=== PATIENT | male | born 1975 | race Caucasian/White ===

== ENCOUNTER → 2023-10-20 | Outpatient (CLI) | payer BC ==
[2023-10-20 08:46] VITALS: BP 122/81; PULSE 78; RESP 16
--- NOTE | 2023-10-20 14:20 | P.PAINPG ---
PQRS Measure Charge Sheet Comment: HISTORY OF PRESENT ILLNESS: A 47 yr old male as a referral from [facility] presents today w severe and chronic LBP secondary to DDD, spondylosis and facet arthropathy without myelopathy for evaluation. Pt states pain level is provoked at 8 /10 in intensity, constant, localized in the lower lumbar spine, predominantly axial, throbbing in character w occasional shooting pain towards the R hip. Pain is provoked by lifting or over activity. 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 Oswestry axial pain score at 23. PMH: OA, Hyperlipidemia PSH: Appendectomy (2020), Hernia Repairs SH: Former tobacco user, Occasional ETOH use, No illicit drug use FH: Non contributory All: See list Meds: See list REVIEW OF ORGAN SYSTEMS: CONSTITUTIONAL: No fevers or chills. No recent weight loss. NEUROLOGICAL: + numbness and tingling along the distal extremities. No seizure disorders or headaches. MUSCULOSKELETAL: + pain PSYCHIATRIC: Denies current depression or suicidal thoughts. Physical Examinations : Constitutional : Cooperative , not in acute distress . Neurologic : Cranial nerve II to XII intact. No focal neurological deficits. Psychiatric : alert & oriented x 3. Matching mood & appropriate affect. Judgment & insight intact. Musculoskeletal : Cervical Spine Motor strength in the deltoid and biceps: Normal right side. Normal Left side Motor strength biceps and the wrist extensors: Normal right side . Normal left side Motor strength in the triceps muscle: Normal right side. Normal left side Deep tendon reflexes: Normal at the biceps. Normal at Brachioradialis. Normal at triceps Vertebral body tenderness to deep palpation over Cervical facet loading test: positive bilaterally Spurling test: positive bilaterally Neck distraction test: positive bilaterally Mj sign: positive bilaterally Lumbar spine Motor strength lower extremities ,thigh and legs 5/5 Right side , 5/5 Left side Deep tendon reflexes : Normal Knee Jerk. Normal Ankle Jerk Vertebral body tenderness over Bates Test positive R L5-S1 Lumbar facet Loading Test: positive Right / positive Left Range of motion of the lumbar spine Flexion 30 degrees, extension 10 degrees Straight Leg Raise test: Left/ Right positive at degrees Dee test: positive right / positive left. Severe tenderness over the Sacroiliac joint on the Right / Left sides Gaenslen test: positive bilaterally Seated flexion test: positive bilaterally. Sacral spine : Severe tenderness over the Sacroiliac joint: right side / left side Range of motion: Flexion of the lumbar spine <60 degrees Range of motion: Extension of the lum bar spine <20 degrees Gaenslen's Test positive Dee test: positive right side / left side Thigh Thrust Test Sacral Thrust Test Imaging: None on file Assessment/ Plan : Lumbar DDD Recommendation of lumbar x ray M51.36. Medrol Dose Pack, use side effects adverse reactions, safe storage discussed. All questions answered. I have spent greater than 30 minutes on patient care today. Dr Spencer was available by phone for the evaluation of this patient. The time was used to review the medical records including relevant urine studies and Prescription history (MAPs), review of the available imaging, evaluation and examination of the patient, coordination of care with the medical staff and if applicable referring physicians, as well as creation of the medical record - Pain Location Bilateral Lower Back Non-Pharmacological Interventions: Chiropractic Treatment, Heat, Ice, Inactivity, Massage, Relaxation Technique Pharmacological Interventions: PRN Medication, Topical Medication Home Medications: Ambulatory Orders methylPREDNISolone Dose Pack [Medrol Dose Pack] 4 mg PO DIRECTED 6 Days #21 tab 10/20/23 Controlled Substance Measures - Controlled Substance Measures Is patient prescribed a controlled substance at discharge?: No
== END ==
LOC: PNWHC3 07:35
PROVIDERS: ATTEND Specialist
DX: M51.36 Other intervertebral disc degeneration, lumbar region (principal); G89.29 Other chronic pain; M47.816 Spondylosis without myelopathy or radiculopathy, lumbar region; Z87.891 Personal history of nicotine dependence
CPT/HCPCS: 99202

== ENCOUNTER → 2023-12-01 | Outpatient (CLI) | payer BC ==
--- NOTE | 2023-12-02 10:46 | MR ---
EXAMINATION TYPE: MR lumbar spine wo con DATE OF EXAM: 12/01/2023 10:05 PM CLINICAL INDICATION:Male, 48 years old with history of M51.36 OTHER INTERVERTEBRAL DISC DEGENERATION, ; PHH, Low back pain into both sides more on the right COMPARISON: None TECHNIQUE: Multi planar, multi sequence imaging was performed utilizing: T1-weighted, T2-weighted, a nd turbo inversion recovery imaging of the lumbar spine. IV Contrast: cc . (None if empty) FINDINGS: Alignment: The lumbar vertebral bodies have preserved heights with grade 1 anterolisthesis of L4 on L 5. Cord: The conus medullaris and the distal spinal cord appear unremarkable with regards to their signa l intensity and morphology. Bones/Discs: Minimal disc degeneration changes worse at L5-S1 with disc space narrowing, osteophytes and Modic endplate changes. Intervertebral disc signal is maintained. T12-L1: No evidence of significant spinal canal stenosis or neural foraminal stenosis. L1-L2: No evidence of significant spinal canal stenosis or neural foraminal stenosis. L2-L3: No evidence of significant spinal canal stenosis or neural foraminal stenosis. L3-L4: Disc uncovering from grade 1 anterolisthesis and facet joint arthropathy with mild spinal nicole l stenosis and mild bilateral neural foraminal stenosis. L4-L5: No evidence of significant spinal canal stenosis or neural foraminal stenosis. L5-S1: Central/left central disc protrusion which closely approximates forming nerves. Spinal canal i s patent. Mild bilateral neural foraminal stenosis. No significant spinal canal or neural foraminal stenosis in the remainder of the visualized levels. Other findings: None. IMPRESSION: 1. L5-S1 disc protrusion which displaces the forming nerves/exiting S1-S2 left nerves. 2. Grade 1 anterolisthesis of L4 and L5. 3. Mild to moderate disc degeneration with associated osteoarthritic changes.
== END | disposition home or self-care (01) ==
LOC: RADMRIMAIN 21:30
PROVIDERS: ATTEND Specialist
DX: M51.36 Other intervertebral disc degeneration, lumbar region (principal); M43.16 Spondylolisthesis, lumbar region; M51.27 Other intervertebral disc displacement, lumbosacral region
CPT/HCPCS: 72148

== ENCOUNTER → 2023-12-23 | Outpatient (CLI) | payer BC ==
[2023-12-23 08:25] VITALS: BP 119/75; PULSE 83; RESP 16; TEMP 97.6
--- NOTE | 2023-12-23 14:07 | P.PAINPG ---
Objective - Vital Signs Vital signs: Vital Signs Temp 97.6 F 12/23/23 08:24 Pulse 83 12/23/23 08:24 Resp 16 12/23/23 08:24 BP 119/75 12/23/23 08:24 Pulse Ox 96 12/23/23 08:24 FiO2 Intake & Output 12/22/23 12/23/23 12/23/23 18:59 06:59 18:59 Weight 90.718 kg PQRS Measure Charge Sheet Mode of Arrival: Ambulatory Comment: HISTORY OF PRESENT ILLNESS: A 48 yr old male presents today w severe and chronic LBP secondary to DDD, spondylosis and facet arthropathy without myelopathy for MRI results. Pt states pain level is provoked at 6 /10 in intensity, constant, localized in the lower lumbar spine, predominantly axial, throbbing in character w occasional shooting pain towards the R hip. Pain is provoked by lifting or over activity. 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 Oswestry axial pain score at 23. Interventional procedures include Medications include Tyl, Ibu REVIEW OF ORGAN SYSTEMS: CONSTITUTIONAL: No fevers or chills. No recent weight loss. NEUROLOGICAL: + numbness and tingling along the distal extremities. No seizure disorders or headaches. MUSCULOSKELETAL: + pain PSYCHIATRIC: Denies current depression or suicidal thoughts. Physical Examinations : Constitutional : Cooperative , not in acute distress . Neurologic : Cranial nerve II to XII intact. No focal neurological deficits. Psychiatric : alert & oriented x 3. Matching mood & appropriate affect. Judgment & insight intact. Musculoskeletal : Cervical Spine Motor strength in the deltoid and biceps: Normal right side. Normal Left side Motor strength biceps and the wrist extensors: Normal right side . Normal left side Motor strength in the triceps muscle: Normal right side. Normal left side Deep tendon reflexes: Normal at the biceps. Normal at Brachioradialis. Normal at triceps Vertebral body tenderness to deep palpation over Cervical facet loading test: positive bilaterally Spurling test: positive bilaterally Neck distraction test: positive bilaterally Mj sign: positive bilaterally Lumbar spine Motor strength lower extremities ,thigh and legs 5/5 Right side , 5/5 Left side Deep tendon reflexes : Normal Knee Jerk. Normal Ankle Jerk Vertebral body tenderness over L5 Bates Test positive R L5-S1 Lumbar facet Loading Test: positive Right / positive Left Range of motion of the lumbar spine Flexion 30 degrees, extension 10 degrees Straight Leg Raise test: Left/ Right positive at degrees Dee test: positive right / positive left. Severe tenderness over the Sacroiliac joint on the Right / Left sides Gaenslen test: positive bilaterally Seated flexion test: positive bilaterally. Sacral spine : Severe tenderness over the Sacroiliac joint: right side / left side Range of motion: Flexion of the lumbar spine <60 degrees Range of motion: Extension of the lumbar spine <20 degrees Gaenslen's Test positive Dee test: positive right side / left side Thigh Thrust Test Sacral Thrust Test Imaging: MRI non contrast lumbar spine from 12/01/23 reviewed Assessment/ Plan : L5-S1 radiculopathy Recommendation of LAWRENCE L5-S1 #1. Risks, benefits of procedure discussed and pt verbalized understanding. Protocol for discontinuation/ continuation of medications keturah procedure discussed. All questions answered. I have spent greater than 30 minutes on patient care today. Dr Spencer was available by phone for the evaluation of this patient. The time was used to review the medical records including relevant urine studies and Prescription history (MAPs), review of the available imaging, evaluation and examination of the patient, coordination of care with the medical staff and if applicable referring physicians, as well as creation of the medical record - Pain Location Lower Back Pharmacological Interventions: PRN Medication PQRS Narrative: Blood Pressure 119/75 Pain Intensity [Lower Back] 6 Scale Used Numeric (1 - 10) Hx Alcohol Use (MH) Yes Home Medications: Ambulatory Orders methylPREDNISolone Dose Pack [Medrol Dose Pack] 4 mg PO DIRECTED 6 Days #21 tab 10/20/23 Controlled Substance Measures - Controlled Substance Measures Is patient prescribed a controlled substance at discharge?: No
== END ==
LOC: PNWHC3 08:12
PROVIDERS: ATTEND Specialist
DX: M54.16 Radiculopathy, lumbar region (principal)
CPT/HCPCS: 99211

== ENCOUNTER 2024-01-08 11:05 | Day surgery (SDC) | payer BC ==
[2024-01-08] MEDS ORDERED: methylPREDNISolone ACETATE 40 MG/ML 1 ML VIAL ONE (12:20)
[2024-01-08] MEDS ORDERED: IOPAMIDOL M200 10 ML VIAL ONE (12:20)
--- NOTE | 2024-03-01 18:19 | FL ---
EXAMINATION TYPE: FL guided pain mgmt statistic DATE OF EXAM: 01/28/2024 9:20 AM COMPARISON: Pre Operative Images if available both CT/MRI or plain film CLINICAL INDICATION: Male, 48 years old with history of LOW BACK PAIN LESI IN PAIN SERVICES; TECHNIQUE: FL guided pain mgmt statistic, multiple fluoroscopic images provided for procedure. Total fluoroscopy time: 5.2 seconds Total submitted images to PACS: 1 DAP: [id number] mGym2 Gycm2 uGym2 cGycm2 or equivalent. FINDINGS: Fluoroscopic images during injection for pain management demonstrate multilevel degeneration changes throughout the spine. No evidence for fracture. No acute process identified. IMPRESSION: 1. No evidence for intraoperative complication. 2. Please see the operative/procedural note for further details. [facility], , 03/01/2024 6:17 PM
== END 2024-01-08 13:06 ==
LOC: ORPAIN 11:05
DX: M54.16 Radiculopathy, lumbar region (principal); E78.00 Pure hypercholesterolemia, unspecified; Z79.899 Other long term (current) drug therapy; Z98.890 Other specified postprocedural states
CPT/HCPCS: 62323

== ENCOUNTER → 2024-01-27 | Outpatient (CLI) | payer BC ==
[2024-01-27 08:03] VITALS: BP 128/83; PULSE 80; RESP 16; TEMP 97.1
--- NOTE | 2024-01-27 13:58 | P.PAINPG ---
PQRS Measure Charge Sheet Comment: HISTORY OF PRESENT ILLNESS: A 48 yr old male presents today w severe and chronic LBP secondary to radiculopathy, spondylosis and facet arthropathy without myelopathy for evaluation s/p LAWRENCE L5-S1 #1. Pt states he experienced 85% pain relief x 3 wks s/p procedure. Pt states pain level is provoked at 7 /10 in intensity, constant, localized in the lower lumbar spine, predominantly axial, dull in character w occasional shooting pain towards the buttocks and hips. Pain is provoked by lifting or over activity. 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 Interventional procedures include Medications include Tyl, Ibu, BioFreeze Gel REVIEW OF ORGAN SYSTEMS: CONSTITUTIONAL: No fevers or chills. No recent weight loss. NEUROLOGICAL: + numbness and tingling along the distal extremities. No seizure disorders or headaches. MUSCULOSKELETAL: + pain PSYCHIATRIC: Denies current depression or suicidal thoughts. Physical Examinations : Constitutional : Cooperative , not in acute distress . Neurologic : Cranial nerve II to XII intact. No focal neurological deficits. Psychiatric : alert & oriented x 3. Matching mood & appropriate affect. Judgment & insight intact. Musculoskeletal : Cervical Spine Motor strength in the deltoid and renee ps: Normal right side. Normal Left side Motor strength biceps and the wrist extensors: Normal right side . Normal left side Motor strength in the triceps muscle: Normal right side. Normal left side Deep tendon reflexes: Normal at the biceps. Normal at Brachioradialis. Normal at triceps Vertebral body tenderness to deep palpation over Cervical facet loading test: positive bilaterally Spurling test: positive bilaterally Neck distraction test: positive bilaterally Mj sign: positive bilaterally Lumbar spine Motor strength lower extremities ,thigh and legs 5/5 Right side , 5/5 Left side Deep tendon reflexes : Normal Knee Jerk. Normal Ankle Jerk Vertebral body tenderness over L5 Bates Test positive R L5-S1 Taut bands w twitch response over BL L2-S2 Lumbar facet Loading Test: positive Right / positive Left Range of motion of the lumbar spine Flexion 30 degrees, extension 10 degrees Straight Leg Raise test: Left/ Right positive at degrees Dee test: positive right / positive left. Severe tenderness over the Sacroiliac joint on the Right / Left sides Gaenslen test: positive bilaterally Seated flexion test: positive bilaterally. Sacral spine : Severe tenderness over the Sacroiliac joint: right side / left side Range of motion: Flexion of the lumbar spine <60 degrees Range of motion: Extension of the gautam mbar spine <20 degrees Gaenslen's Test positive Dee test: positive right side / left side Thigh Thrust Test Sacral Thrust Test Imaging: MRI non contrast lumbar spine from 12/01/23 reviewed Assessment/ Plan : L5-S1 radiculopathy Recommendation of BL TPIs L2-S2 #1 and Flexeril 5mg #90 w 1 RF. Use, side effects, adverse reactions, safe storage discussed. Risks, benefits of procedure discussed and pt verbalized understanding. Protocol for discontinuation/ continuation of medications keturah procedure discussed. All questions answered. I have spent greater than 30 minutes on patient care today. Dr Spencer was available by phone for the evaluation of this patient. The time was used to review the medical records including relevant urine studies and Prescription history (MAPs), review of the available imaging, evaluation and examination of the patient, coordination of care with the medical staff and if applicable referring physicians, as well as creation of the medical record - Pain Location Bilateral Lower Back Non-Pharmacological Interventions: Heat, Ice, Inactivity, Massage, Stretching Pharmacological Interventions: Epidural, PRN Medication, Topical Medication PQRS Narrative: Hx Alcohol Use (MH) Yes Home Medications: Ambulatory Orders methylPREDNISolone Dose Pack [Medrol Dose Pack] 4 mg PO DIRECTED 6 Days #21 tab 10/20/23 Cyclobenzaprine [Flexeril] 5 mg PO TID PRN 30 Days #90 tablet 01/27/24 Controlled Substance Measures - Controlled Substance Measures Is patient prescribed a controlled substance at discharge?: No
== END ==
LOC: PNWHC3 07:35
PROVIDERS: ATTEND Specialist
DX: M47.26 Other spondylosis with radiculopathy, lumbar region (principal)
CPT/HCPCS: 99211

== ENCOUNTER 2024-02-02 13:07 | Day surgery (SDC) | payer BC ==
[~2024-02-02 13:07] MED LIST: LACTATED RINGERS 1,000 ML IV SCH
[2024-02-02 13:26] VITALS: TEMP 97.5
[2024-02-02] MEDS ORDERED: methylPREDNISolone ACETATE 80 MG/ML 1 ML VIAL ONE (13:35)
[2024-02-02] MEDS ORDERED: ROPIVACAINE 5MG/ML 20ML VIAL ONE (13:35)
--- NOTE | 2024-02-02 13:48 | P.PCN ---
Description of Procedure: Preprocedure diagnosis. Myofascial pain. Myofascial trigger point. Postprocedure diagnosis. As above. Procedure done. Myofascial trigger point injection with local anesthetics and steroid at 5 points. Anesthesia. Ethyl chloride spray. Local anesthetic infiltration. In the OR continuous pulse ox, EKG, blood pressure, and verbal communication was maintained with the patient. Blood loss. None. Indication. Discussed with the patient procedure, alternatives and possible complications which may include infection, bleeding, nerve damage, aggravation of pain. Patient understands and all questions were answered. Procedure note. After getting consent patient in the procedure area. Most tender points were identified and marked. A 25-gauge needle attached to syringe was introduced at the trigger points and after negative aspiration 4 mL solution are injected at each trigger point. I injected 3 trigger points in bilateral lumber paraspinal muscles, 2 trigger points in bilateral gluteal muscle. Total solution consists of 20 ml 0.5%Ropivacaine mixed with 80 mg Depomedrol. Disposition. Patient tolerated the procedure well. No complication. Discharged home in stable condition.
[2024-02-02 13:50] VITALS: RESP 16
[2024-02-02 14:02] VITALS: BP 102/66; PULSE 80
== END 2024-02-02 14:12 | disposition home or self-care (01) ==
LOC: ORPAIN 13:07
PROVIDERS: ATTEND Pain Medicine Interventional Pain Medicine
DX: M79.18 Myalgia, other site
CPT/HCPCS: 20553